=== PATIENT | female | born 1985 | race Caucasian/White ===

== ENCOUNTER 2017-11-22 10:18 | Emergency (ER) | payer OTHER ==
[~2017-11-22] VITALS: Ht 162.6 cm; Wt 49.2 kg
[2017-11-22 10:55] LABS: HEMOGLOBIN 14.4 G/DL (11.9-15.5); MCH 33.3 PG (29.0-34.0); MCV 92.6 FL (83-99); PLATELET COUNT 179 K/uL (156-360); RBC DIS.WIDTH-CV 11.8 % (11.8-14.6); RBC DIS.WIDTH-SD 40.6 % (39-53); RED BLOOD COUNT 4.32 M/uL (3.80-5.20); WHITE BLOOD COUNT 5.4 K/uL (4.1-10.2)
[2017-11-22] MEDS ORDERED: METOPROLOL SUCC25 MG PO (11:02)
[2017-11-22] MEDS ORDERED: NITROFURANTOIN100 M3 PO (11:02)
[2017-11-22 11:07] LABS: CHLORIDE 109 mEq/L (99-109); POTASSIUM 4.2 mEq/L (3.7-5.4); SODIUM 141 mEq/L (136-147)
[2017-11-22 11:09] LABS: GLUCOSE 98 mg/dL (70-99)
[2017-11-22 11:13] LABS: CREATININE 0.7 mg/dL (0.6-1.3); GFR ESTIMATE (CALCULATED) > 59 mL/min/
[2017-11-22 11:14] LABS: UREA NITROGEN (BUN) 7 mg/dL (9-23)
[2017-11-22 11:21] LABS: QUANTITATIVE HCG < 4.0 MIU/ML
[2017-11-22 11:23] LABS: APPEARANCE CLEAR ((CLEAR)); BILIRUBIN NEGATIVE; BLOOD SMALL; COLOR YELLOW ((YELLOW)); GLUCOSE (STRIP) NEGATIVE; KETONES NEGATIVE; LEUKOCYTES TRACE; NITRITE NEGATIVE; PROTEIN (STRIP) NEGATIVE; SPECIFIC GRAVITY 1.006 (1.000-1.030); UROBILINOGEN 0.2 MG/DL (0.2-1.0)
[2017-11-22 11:26] LABS: BACTERIA RARE /HPF; EPITHELIAL CELLS 1+ /HPF; MUCUS TRACE /LPF; RED BLOOD CELLS 0-5 /HPF (0-5); WHITE BLOOD CELLS 0-5 /HPF (0-5)
[2017-11-22] MEDS ORDERED: ZOFRAN ODT4 MG PO (11:31)
[2017-11-22 12:15] VITALS: BP 109/70
== END 2017-11-22 12:32 | disposition home or self-care (01) ==
LOC: EME 10:18
PROVIDERS: Nurse Practitioner Family
DX: N39.0 Urinary tract infection, site not specified (principal); R19.7 Diarrhea, unspecified; R53.1 Weakness
CPT/HCPCS: 80048; 81003; 84702; 85027; 99281; 99285; J7030

== ENCOUNTER 2017-12-30 21:29 | Emergency (ER) | payer OTHER ==
[~2017-12-30] VITALS: Ht 162.6 cm; Wt 48.7 kg
[~2017-12-30 21:29] MED LIST: METOPROLOL SUCC25 MG PO; NITROFURANTOIN100 M3 PO; ZOFRAN ODT4 MG PO
[2017-12-30 22:06] LABS: APPEARANCE CLEAR ((CLEAR)); BILIRUBIN NEGATIVE; BLOOD NEGATIVE; COLOR YELLOW ((YELLOW)); GLUCOSE (STRIP) NEGATIVE; KETONES NEGATIVE; LEUKOCYTES TRACE; NITRITE NEGATIVE; PROTEIN (STRIP) NEGATIVE; SPECIFIC GRAVITY 1.019 (1.000-1.030)
[2017-12-30 22:23] LABS: BACTERIA RARE /HPF; EPITHELIAL CELLS 1+ /HPF; MUCUS 3+ /LPF; RED BLOOD CELLS 0-5 /HPF (0-5); UCUL ADDED? NO; WHITE BLOOD CELLS 0-5 /HPF (0-5)
[2017-12-30 23:30] VITALS: BP 112/62
== END 2017-12-30 23:47 | disposition home or self-care (01) ==
LOC: EME 21:29
DX: Z00.00 Encounter for general adult medical examination without abnormal findings (principal); T37.0X6A Underdosing of sulfonamides, initial encounter; Z91.128 Patient's intentional underdosing of medication regimen for other reason; Z87.440 Personal history of urinary (tract) infections; F17.200 Nicotine dependence, unspecified, uncomplicated
CPT/HCPCS: 81003; 99281; 99283

== ENCOUNTER 2018-01-08 18:57 | Emergency (ER) | payer OTHER ==
[~2018-01-08] VITALS: Ht 162.6 cm; Wt 48.8 kg
[2018-01-08] MEDS ORDERED: KEFLEX500 MG PO (19:34)
[2018-01-08 19:45] VITALS: BP 123/80
== END 2018-01-08 19:54 | disposition home or self-care (01) ==
LOC: EME 18:57
DX: S30.861A Insect bite (nonvenomous) of abdominal wall, initial encounter (principal); W57.XXXA Bitten or stung by nonvenomous insect and other nonvenomous arthropods, initial encounter; F17.200 Nicotine dependence, unspecified, uncomplicated
CPT/HCPCS: 99281; 99283